=== PATIENT | female | born 1950 | race Caucasian/White ===

== ENCOUNTER 2017-04-01 06:38 | Emergency (ER) | payer MEDICARE, OTHER ==
[~2017-04-01] VITALS: Ht 160 cm; Wt 56.2 kg
--- NOTE | 2017-04-01 06:55 | NUR ---
To bed 7 a 66 yo female bibself with c/o right knee pain s/p fall yesterday, 05/26. Patient is aaox4, ambulatory, right knee pain worsens with movement. vss. nad noted. comfort measures rendered. awaiting for er md adorno.
--- NOTE | 2017-04-01 07:01 | NUR ---
Dr Joyner at bedside to kyree.
[2017-04-01] MEDS ORDERED: HYDROCODONE/APAP 5/325MG 1 EACH TABLET ONE (07:12)
[2017-04-01] MEDS ORDERED: ONDANSETRON 4 MG TAB.RAPDIS ONE (07:12)
[2017-04-01] MEDS: ONDANSETRON 4 MG TAB.RAPDIS PO ONE (07:16)
[2017-04-01] MEDS: HYDROCODONE/APAP 5/325MG 1 EACH TABLET PO ONE (07:16)
--- NOTE | 2017-04-01 07:17 | NUR ---
Medicated patient as ordered by Dr Joyner. Endorsed care to Rosa MOE for jim.
--- NOTE | 2017-04-01 07:39 | NUR ---
pt back from radiology
[2017-04-01 09:27] VITALS: BP 129/74
== END 2017-04-01 09:29 | disposition home or self-care (01) ==
LOC: ER 06:40
DX: S09.90XA Unspecified injury of head, initial encounter (principal); M25.561 Pain in right knee; G89.29 Other chronic pain; I10 Essential (primary) hypertension; J44.9 Chronic obstructive pulmonary disease, unspecified; F17.200 Nicotine dependence, unspecified, uncomplicated; J43.9 Emphysema, unspecified; F10.20 Alcohol dependence, uncomplicated; Z98.890 Other specified postprocedural states; W01.198A Fall on same level from slipping, tripping and stumbling with subsequent striking against other object, initial encounter; Y93.89 Activity, other specified; Y92.89 Other specified places as the place of occurrence of the external cause; Y99.9 Unspecified external cause status
CPT/HCPCS: 70450-TC; 73564-TC; 73700-TC; A4606; Q0162; Z7610

== ENCOUNTER 2017-07-29 11:47 | Emergency (ER) | payer MEDICARE, OTHER ==
[~2017-07-29] VITALS: Ht 162.6 cm; Wt 56.7 kg
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
[2017-07-29] MEDS ORDERED: IBUPROFEN 400 MG TABLET PO ONE (13:00)
[2017-07-29] MEDS ORDERED: IBUPROFEN 400 MG TABLET ONE (13:22)
[2017-07-29 13:58] VITALS: BP 140/85
== END 2017-07-29 14:27 | disposition home or self-care (01) ==
LOC: ER 11:48
DX: S69.91XA Unspecified injury of right wrist, hand and finger(s), initial encounter (principal); M54.9 Dorsalgia, unspecified; F10.129 Alcohol abuse with intoxication, unspecified; I10 Essential (primary) hypertension; J44.9 Chronic obstructive pulmonary disease, unspecified; F17.200 Nicotine dependence, unspecified, uncomplicated; W18.39XA Other fall on same level, initial encounter; Y93.89 Activity, other specified; Y92.89 Other specified places as the place of occurrence of the external cause; Y99.8 Other external cause status
CPT/HCPCS: 29125; 70450; 72128; 72131; 73130; 99284; A4606; Z7610

== ENCOUNTER 2017-08-21 13:02 | Inpatient (IN) | payer MEDICARE, OTHER ==
[~2017-08-21] VITALS: Ht 160 cm; Wt 54.4 kg
--- NOTE | 2017-08-21 13:10 | NUR ---
PT AMBULATORY TO ER BED 10. C/O SOB, COUGH AND CONGESTION SINCE . PT WAS SEEN AND D/C HERE LAST THURSDAY. PT STATES WAS PRESCRIBED INHALER AND ZITHROMAX. GOWNED ANS PLACED ON MONITOR. AWAITING MD GOMES.
--- NOTE | 2017-08-21 16:08 | NUR ---
DR COMBS AT BEDSIDE FOR EVAL.
--- NOTE | 2017-08-21 16:22 | NUR ---
called rt for breathing tx
[2017-08-21 16:23] LABS: BASOPHILS # (AUTO) 0.1 /CMM (0.0-0.2); EOSINOPHILS # (AUTO) 0.1 /CMM (0.0-0.7); EOSINOPHILS % (AUTO) 0.6 % (0.0-6.0); HEMATOCRIT 36 % (33-45); HEMOGLOBIN 12.2 g/dL (11.5-14.8); LYMPHOCYTES # (AUTO) 2.9 /CMM (0.8-4.8); LYMPHOCYTES % (AUTO) 30.4 % (20.0-44.0); MEAN CORPUSCULAR HEMOGLOBIN 32 PG (26.0-33.0); MEAN CORPUSCULAR HGB CONC 34 g/dl (31.0-36.0); MEAN CORPUSCULAR VOLUME 93 fL (82-100); MONOCYTES # (AUTO) 0.7 /CMM (0.1-1.30); MONOCYTES % (AUTO) 7.1 % (2.0-12.0); NEUTROPHILS # (AUTO) 5.8 /CMM (1.8-8.9); NEUTROPHILS % (AUTO) 60.9 % (43.0-81.0); PLATELET COUNT (AUTO) 611 /CMM (150-450); RDW COEFFICIENT OF VARIATION 13.4 (11.5-15.0); RED BLOOD CELL COUNT(AUTO) 3.85 MIL/uL (4.0-5.2); WHITE BLOOD COUNT (AUTO) 9.6 K/uL (4.3-11.0)
[2017-08-21] MEDS ORDERED: ALBUTEROL FS 2.5 MG/3 ML VIAL.NEB CONTNEB ONE (16:30)
[2017-08-21] MEDS ORDERED: ONDANSETRON HCL/PF 4 MG/2 ML VIAL IVP ONE (16:30)
[2017-08-21] MEDS ORDERED: methylPREDNISolone SOD SUCC 125 MG/2ML VIAL IV ONE (16:30)
[2017-08-21] MEDS ORDERED: CEFTRIAXONE 1GM BAG (ER ONLY) 50 ML IV ONE (16:30)
[2017-08-21] MEDS ORDERED: IPRATROPIUM NEB FS 0.5 MG/2.5 ML AMPUL.NEB NEB ONE (16:30)
[2017-08-21] MEDS ORDERED: AZITHROMYCIN 500 MG in IV D5W 250 ML IV ONE (16:30)
[2017-08-21] MEDS ORDERED: IV NS 0.9% 1,000 ML BAG IV ONE (16:30)
[2017-08-21] MEDS ORDERED: ALBUTEROL FS 2.5 MG/3 ML VIAL.NEB ONE (16:31)
[2017-08-21] MEDS ORDERED: IPRATROPIUM NEB FS 0.5 MG/2.5 ML AMPUL.NEB ONE (16:31)
[2017-08-21 16:34] LABS: CALCIUM, SERUM 8.9 mg/dL (8.5-10.1); CARBON DIOXIDE 28 mmol/L (21-32); CHLORIDE 93 mmol/L (98-107); CREATININE 0.5 mg/dL (0.6-1.3); GLUCOSE 88 mg/dL (74-106); POTASSIUM 3.3 mmol/L (3.5-5.1); SODIUM SERUM 128 mmol/L (136-145); UREA NITROGEN, BLOOD 5 mg/dL (7-18)
[2017-08-21 16:41] LABS: TROPONIN I < 0.017 ng/mL (0.00-0.056)
[2017-08-21] MEDS ORDERED: methylPREDNISolone SOD SUCC 125 MG/2ML VIAL ONE (16:44)
[2017-08-21] MEDS ORDERED: ONDANSETRON HCL/PF 4 MG/2 ML VIAL ONE (16:44)
[2017-08-21 16:47] LABS: ALANINE AMINOTRANSFERASE 14 U/L (12-78); ALBUMIN 2.8 g/dL (3.4-5.0); ALKALINE PHOSPHATASE 75 U/L (46-116); ASPARTATE AMINOTRANSFERASE 14 U/L (15-37); B-TYPE NATRIURETIC PEPTIDE 478 PG/ML (0-125); BILIRUBIN,TOTAL 0.1 mg/dL (0.2-1.0); TOTAL PROTEIN, SERUM 7.6 g/dL (6.4-8.2)
[2017-08-21] MEDS ORDERED: IV NS 0.9% 1,000 ML IV PRN (19:15)
[2017-08-21] MEDS ORDERED: Z GUARD REMEDY 2 OZ OINT TP PRN (19:30)
[2017-08-21] MEDS ORDERED: ACETAMINOPHEN 325 MG TABLET PO PRN (19:30)
[2017-08-21] MEDS ORDERED: ONDANSETRON HCL/PF 4 MG/2 ML VIAL IVP PRN (19:30)
[2017-08-21] MEDS ORDERED: ENOXAPARIN SODIUM 40 MG/0.4 ML DISP.SYRIN SQ SCH (19:30)
[2017-08-21] MEDS ORDERED: MAGNESIUM HYDROXIDE 30 ML UDC PO PRN (19:30)
[2017-08-21] MEDS ORDERED: AZITHROMYCIN 500 MG in IV D5W 250 ML IV SCH (19:30)
[2017-08-21] MEDS ORDERED: MAG HYDROX/AL HYDROX/SIMETH 30 ML UDC PO PRN (19:30)
[2017-08-21] MEDS ORDERED: HYDROCODONE/APAP 5/325MG 1 EACH TABLET PO PRN (19:30)
[2017-08-21] MEDS ORDERED: CEFTRIAXONE 1 G in IV D5W 50 ML IV SCH (19:30)
--- NOTE | 2017-08-21 21:21 | NUR ---
REPORT GIVEN TO NURSE. PT AWAITING TRANSFER TO FLOOR.
[2017-08-21 21:30] VITALS: BP 141/69
[2017-08-21] MEDS ORDERED: HYDROCODONE/APAP 10/325MG 1 EA TABLET ONE (21:58)
[2017-08-21] MEDS ORDERED: ENOXAPARIN SODIUM 40 MG/0.4 ML DISP.SYRIN SQ ONE (21:58)
[2017-08-21] MEDS: HYDROCODONE/APAP 10/325MG 1 EA TABLET PO PRN (22:02)
[2017-08-21] MEDS ORDERED: TEMAZEPAM 15 MG CAPSULE ONE (22:37)
[2017-08-21] MEDS ORDERED: TEMAZEPAM 15 MG CAPSULE PO ONE (23:00)
[2017-08-22] MEDS ORDERED: ALBUTEROL FS 2.5 MG/0.5 ML VIAL.NEB NEB SCH
[2017-08-22] MEDS ORDERED: IPRATROPIUM NEB FS 0.5 MG/2.5 ML AMPUL.NEB NEB SCH
[2017-08-22] MEDS ORDERED: HYDROCODONE/APAP 10/325MG 1 EA TABLET ONE (03:38)
[2017-08-22] MEDS: HYDROCODONE/APAP 10/325MG 1 EA TABLET PO PRN ×4 (03:39→21:19)
--- NOTE | 2017-08-22 06:37 | NUR ---
MS RN NOTES AWAKE & RESPONSIVE. NOT IN ANY DISTRESS. NO SOB NOTED. DENIES ANY PAIN OR DISCOMFORT AT THIS TIME. WITH IVF INFUSING WELL. MONITORED ACCORDINGLY. CALL LIGHT WITHIN REACH. BED IN LOWEST POSITION. SR UP X 2 FOR SAFETY. WILL ENDORSE TO NEXT SHIFT.
--- NOTE | 2017-08-22 07:20 | NUR ---
RN OPENING NOTES RECEIVED PT. IN BED A&OX4. BREATHING UNLABORED, AND EVENLY ON OXYGEN AT 3L/MIN VIA NASAL CANNULA . NO S/S OF ACUTE DISTRESS. IV FLUIDS RUNNING AT 75 ML/HR. BED IS IN LOWEST, AND LOCKED POSITION. BOTH SIDE RAILS UP, AND INSTRUCTED PT. TO USE CALL LIGHT FOR ASSISTANCE. ALL NEEDS MET. WILL CONTINUE TO ASSESS AND MONITOR.
[2017-08-22 08:00] VITALS: BP 111/63
[2017-08-22 08:31] LABS: BASOPHILS % (AUTO) 0.5 % (0.0-2.0); EOSINOPHILS % (AUTO) 0.1 % (0.0-6.0); HEMATOCRIT 31 % (33-45); HEMOGLOBIN 10.9 g/dL (11.5-14.8); LYMPHOCYTES # (AUTO) 1.1 /CMM (0.8-4.8); LYMPHOCYTES % (AUTO) 12.9 % (20.0-44.0); MEAN CORPUSCULAR HEMOGLOBIN 34 PG (26.0-33.0); MEAN CORPUSCULAR HGB CONC 35 g/dl (31.0-36.0); MEAN CORPUSCULAR VOLUME 96 fL (82-100); MONOCYTES # (AUTO) 0.4 /CMM (0.1-1.30); NEUTROPHILS % (AUTO) 81.5 % (43.0-81.0); PLATELET COUNT (AUTO) 487 /CMM (150-450); RED BLOOD CELL COUNT(AUTO) 3.27 MIL/uL (4.0-5.2); WHITE BLOOD COUNT (AUTO) 8.6 K/uL (4.3-11.0)
[2017-08-22 08:41] LABS: CALCIUM, SERUM 8.5 mg/dL (8.5-10.1); CREATININE 0.7 mg/dL (0.6-1.3); MAGNESIUM 1.6 mg/dL (1.8-2.4); PHOSPHORUS 3.6 mg/dL (2.5-4.9); POTASSIUM 3.9 mmol/L (3.5-5.1)
[2017-08-22 08:45] LABS: THYROID STIMULATING HORMONE 0.995 uIU/mL (0.358-3.74)
[2017-08-22] MEDS: methylPREDNISolone SOD SUCC 40 MG/ML VIAL IV SCH ×2 (09:42→17:19)
[2017-08-22] MEDS: Magnesium 1GM/D5W 100ML PREMIX 100 ML IV SCH ×2 (09:43→11:50)
[2017-08-22 16:00] VITALS: BP 145/87
[2017-08-22] MEDS: CEFTRIAXONE 1 G in IV D5W 50 ML IV SCH (16:15)
[2017-08-22] MEDS ORDERED: IV NS 0.9% 1,000 ML IV PRN (16:25)
[2017-08-22] MEDS: AZITHROMYCIN 250 MG TABLET PO SCH (17:23)
[2017-08-22] MEDS ORDERED: AZITHROMYCIN 500 MG in IV D5W 250 ML IV SCH (18:00)
--- NOTE | 2017-08-22 19:35 | NUR ---
RN CLOSING NOTES PT. IN BED A&OX4. BREATHING UNLABORED, AND EVENLY ON ROOM AIR. NO S/S OF ACUTE DISTRESS. IV ACCESS ON LEFT FOREARM IS INTACT AND PATENT. BED IS IN LOWEST, AND LOCKED POSITION. W SIDE RAILS UP, AND INSTRUCTED PT. TO USE CALL LIGHT FOR ASSISTANCE. ALL NEEDS MET. WILL ENDORSE REPORT TO NURSE.
--- NOTE | 2017-08-22 19:45 | NUR ---
RN OPENING NOTES PT RESTING IN BED. NO COMPLAINTS OF PAIN, SOB, OR DISTRESS AT THIS TIME. PT HAS LEFT FOREARM IV, INTACT AND PATENT. SAFETY PRECAUTIONS IN PLACE. PT ABLE TO AMBULATE TO THE BATHROOM. BED IN LOW, LOCKED POSITION, [id number] UP. CALL LIGHT WITHIN REACH. WILL CONTINUE TO MONITOR.
[2017-08-22 20:00] VITALS: BP 162/87
[2017-08-22] MEDS: ALBUTEROL FS 2.5 MG/0.5 ML VIAL.NEB NEB SCH (20:07)
[2017-08-22] MEDS: IPRATROPIUM NEB FS 0.5 MG/2.5 ML AMPUL.NEB NEB SCH (20:07)
[2017-08-22] MEDS: ENOXAPARIN SODIUM 40 MG/0.4 ML DISP.SYRIN SQ SCH (21:00)
[2017-08-23] MEDS: ALBUTEROL FS 2.5 MG/0.5 ML VIAL.NEB NEB SCH ×4 (01:30→21:23)
[2017-08-23] MEDS: IPRATROPIUM NEB FS 0.5 MG/2.5 ML AMPUL.NEB NEB SCH ×4 (01:30→21:23)
[2017-08-23] MEDS: HYDROCODONE/APAP 10/325MG 1 EA TABLET PO PRN ×5 (03:28→21:24)
--- NOTE | 2017-08-23 07:15 | NUR ---
RN NOTES PT IS SITTING UP IN BED, RESTING COMFORTABLY. PT ON RA, RESPIRATIONS ARE EVEN AND UNLABORED. IV ON LAC INTACT AND PATENT RUNNING NS @ 50ML/HR. SAFETY MEASURES ARE IN PLACE, CALL LIGHT IS IN REACH. WILL CONTINUE TO MONITOR.
--- NOTE | 2017-08-23 07:33 | NUR ---
RN CLOSING NOTES PT RESTING IN BED. NO COMPLAINTS OF PAIN, SOB, OR DISTRESS AT THIS TIME. PT HAS LEFT FOREARM IV, INTACT AND PATENT. SAFETY PRECAUTIONS IN PLACE. PT ABLE TO AMBULATE TO THE BATHROOM. BED IN LOW, LOCKED POSITION, [id number] UP. CALL LIGHT WITHIN REACH. WILL ENDORSE TO DAY SHIFT NURSE FOR CONTINUITY OF CARE.
[2017-08-23 07:45] LABS: BASOPHILS # (AUTO) 0.2 /CMM (0.0-0.2); HEMATOCRIT 32 % (33-45); HEMOGLOBIN 11.5 g/dL (11.5-14.8); LYMPHOCYTES # (AUTO) 1.8 /CMM (0.8-4.8); LYMPHOCYTES % (AUTO) 15.6 % (20.0-44.0); MEAN CORPUSCULAR HEMOGLOBIN 35 PG (26.0-33.0); MEAN CORPUSCULAR HGB CONC 36 g/dl (31.0-36.0); MEAN CORPUSCULAR VOLUME 98 fL (82-100); MONOCYTES # (AUTO) 0.6 /CMM (0.1-1.30); MONOCYTES % (AUTO) 4.8 % (2.0-12.0); NEUTROPHILS # (AUTO) 9.1 /CMM (1.8-8.9); NEUTROPHILS % (AUTO) 77.6 % (43.0-81.0); PLATELET COUNT (AUTO) 447 /CMM (150-450); RDW COEFFICIENT OF VARIATION 14.2 (11.5-15.0); RED BLOOD CELL COUNT(AUTO) 3.25 MIL/uL (4.0-5.2); WHITE BLOOD COUNT (AUTO) 11.8 K/uL (4.3-11.0)
[2017-08-23 08:00] VITALS: BP 189/81
[2017-08-23] MEDS: methylPREDNISolone SOD SUCC 40 MG/ML VIAL IV SCH ×2 (08:00→17:12)
[2017-08-23] MEDS: VALSARTAN 80 MG TABLET PO SCH (08:35)
[2017-08-23 08:36] LABS: CALCIUM, SERUM 9.1 mg/dL (8.5-10.1); CREATININE 0.5 mg/dL (0.6-1.3); POTASSIUM 3.9 mmol/L (3.5-5.1)
[2017-08-23 12:27] LABS: MAGNESIUM 1.8 mg/dL (1.8-2.4)
[2017-08-23] MEDS: CEFTRIAXONE 1 G in IV D5W 50 ML IV SCH (15:12)
[2017-08-23 16:00] VITALS: BP 130/63
[2017-08-23] MEDS: AZITHROMYCIN 250 MG TABLET PO SCH (17:12)
--- NOTE | 2017-08-23 18:53 | NUR ---
RN NOTES PT IS SITTING IN BED, RESTING COMFORTABLY. PT ON RA, RESPIRATIONS ARE EVEN AND UNLABORED. IV ON LAC INTACT AND RUNNING NS @ 50ML/HR. ALL MEDS WERE GIVEN ORDERED. NORCO LAST GIVEN AT 1713 FOR PAIN. SAFETY MEASURES ARE IN PLACE, CALL LIGHT IS IN REACH. WILL ENDORSE TO PAPERHANGER RN FOR CONTINUITY OF CARE.
--- NOTE | 2017-08-23 19:55 | NUR ---
MS RN NOTE: PATIENT RESTING IN BED, NO ACUTE DISTRESS NOTED. BREATHING EVEN AND UNLABORED, NO SOB NOTED. IV TO LAC IN PLACE, PATIENT REFUSING FLUIDS AT THIS TIME, EXPLAINED RISK AND BENEFITS, BUT CONTINUES TO REFUSE. BED LOCKED AND IN LOWEST POSITION, CALL LIGHT IN REACH. WILL CONTINUE TO MONITOR.
[2017-08-23 20:44] VITALS: BP 101/59
[2017-08-23] MEDS: ENOXAPARIN SODIUM 40 MG/0.4 ML DISP.SYRIN SQ SCH (21:00)
--- NOTE | 2017-08-23 21:30 | NUR ---
MS RN NOTE: PATIENT COMPLAINS OF PAIN TO ABDOMEN/CHEST AREA, 04/26, NORCO 10/325MG ORAL GIVEN PER MD ORDER. WILL CONTINUE TO MONITOR.
[2017-08-24] MEDS: ALBUTEROL FS 2.5 MG/0.5 ML VIAL.NEB NEB SCH ×4 (01:30→19:42)
[2017-08-24] MEDS: IPRATROPIUM NEB FS 0.5 MG/2.5 ML AMPUL.NEB NEB SCH ×4 (01:30→19:42)
[2017-08-24] MEDS: HYDROCODONE/APAP 10/325MG 1 EA TABLET PO PRN ×4 (01:59→21:02)
--- NOTE | 2017-08-24 02:15 | NUR ---
MS RN NOTE: PATIENT COMPLAINS OF PAIN TO ABDOMEN/CHEST AREA, 04/26, NORCO 10/325MG ORAL GIVEN PER MD ORDER. WILL CONTINUE TO MONITOR.
--- NOTE | 2017-08-24 06:50 | NUR ---
MS RN NOTE: PATIENT RESTING IN BED, NO ACUTE DISTRESS NOTED. BREATHING EVEN AND UNLABORED, NO SOB NOTED. IV TO LAC IN PLACE. BED LOCKED AND IN LOWEST POSITION, CALL LIGHT IN REACH. WILL ENDORSE TO DAY NURSE TO CONTINUE WITH PLAN OF CARE.
--- NOTE | 2017-08-24 07:30 | NUR ---
RN OPENING NOTES RECEIVED PT. IN BED A&OX4. BREATHING UNLABORED, AND EVENLY ON OXYGEN AT 2L/MIN VIA NASAL CANNULA. IV FLUIDS AT BED SIDE. BED IS IN LOWEST, AND LOCKED POSITION. 2 SIDE RAILS UP, AND INSTRUCTED PT. TO USE CALL LIGHT FOR ASSISTANCE ALL NEEDS MET. WILL CONTINUE TO ASSESS AND MONITOR.
[2017-08-24 08:00] VITALS: BP 114/68
[2017-08-24] MEDS ORDERED: predniSONE 20 MG TABLET PO SCH (09:00)
[2017-08-24] MEDS: VALSARTAN 80 MG TABLET PO SCH (09:02)
--- NOTE | 2017-08-24 11:28 | NUR ---
Social service consult requested by SURYA Hernandez for homelessness. Pt. is a 66 year old female who was admitted to [facility] for pneumonia. SW met with pt. bedside. SW is familiar with pt. from previous admissions. Pt. is alert and oriented x 4. Pt. was pleasant and cooperative with SW during the assessment. Pt. informed SW she is homeless and has been homeless by choice for a very long time. Pt's emergency contact is her sister Salome who resides in [place]. Pt. has a boyfriend and lives with him on the streets at [facility] in [place]. Pt. has been with her boyfriend Estevan for 14 years. Pt. receives approximately $982/month in SSI. Pt. denies suicidal/homicidal ideations and visual/auditory hallucinations at this time. Pt. consumes alcohol and smokes marijuana occasionally. Pt. smokes one packet of cigarettes per day. Pt. would like to go to [facility] upon discharge. motel manager Bertha Diamond is aware of placement and will be arranging for pt. to be discharged to [facility] when pt. is medically cleared. Pt. does not have an advance healthcare directive and makes her own decisions. No other social service needs are required at this time. SW is available if needed.
[2017-08-24] MEDS ORDERED: VALS80TA2 PO (12:11)
[2017-08-24] MEDS ORDERED: CEFT1FRO2 IV (12:11)
[2017-08-24] MEDS ORDERED: AZIT250T PO (12:11)
[2017-08-24] MEDS ORDERED: PRED20TA GT (12:11)
[2017-08-24] MEDS ORDERED: PRED20TA PO ×2 (12:11)
[2017-08-24] MEDS ORDERED: ALBU2.5V13 NEB (12:11)
--- NOTE | 2017-08-24 15:26 | NUR ---
RN NOTES REPORT GIVEN TO FIONA FEDERAL JUDICIAL LAW CLERK FROM [facility].
[2017-08-24] MEDS: CEFTRIAXONE 1 G in IV D5W 50 ML IV SCH (15:30)
[2017-08-24 16:00] VITALS: BP 153/77
--- NOTE | 2017-08-24 16:00 | NUR ---
RN NOTES REPORT WAS GIVEN TO FIONA NURSE PARK INTERPRETIVE RANGER AT [facility] FOR DISCHARGE.
[2017-08-24] MEDS ORDERED: LACTOBACILLUS RHAMNOSUS GG 1 EACH CAP.SPRINK PO SCH (17:00)
--- NOTE | 2017-08-24 17:00 | NUR ---
SALES SPECIAL AGENT NOTES PT. WAS PROVIDED DISCHARGE INSTRUCTIONS, WITH EDUCATIONS, AND PT. VERBALIZED UNDERSTANDING. ALL QUESTIONS ANSWERED. ID BAND AND IV WAS REMOVED.
[2017-08-24] MEDS: AZITHROMYCIN 250 MG TABLET PO SCH (19:22)
--- NOTE | 2017-08-24 19:22 | NUR ---
RN NOTES A/O X 4, PT IN STABLE CONDITION, NO S/S OF DISTRESS. SAFETY MEASURES ARE IN PLACE, CALL LIGHT IS IN REACH. WILL CONTINUE TO MONITOR.
--- NOTE | 2017-08-24 19:30 | NUR ---
DIGITAL SALES MANAGER NOTES PT. IS IN STABLE CONDITION. NO S/S OF ACUTE DISTRESS. AMBULANCE CHECKED PT.'S BP. BP WAS 177/90, AMBULANCE COULD NOT TAKE PT. DUE TO HIGH BP. AMBULANCE RESCHEDULED NEW FURNACE OPERATOR AND TENDER TIME FOR 2229. WAS NOTIFIED ABOUT PT.'S BP, NEW ORDER GIVEN FOR CATAPRES 0.2 MG PO ONCE. WILL ENDORSE DISCHARGE REPORT TO NURSE.
[2017-08-24 20:00] VITALS: BP 149/79
[2017-08-24] MEDS ORDERED: CLONIDINE HCL 0.1 MG TABLET PO ONE (20:00)
[2017-08-24] MEDS: ENOXAPARIN SODIUM 40 MG/0.4 ML DISP.SYRIN SQ SCH (20:27)
[2017-08-24 21:29] VITALS: BP 138/67
--- NOTE | 2017-08-24 22:51 | NUR ---
bp now stable, called ambulance to ff up picking machine operator helper according to them they will be late picking machine operator helper time 2330 charge nurse aware. called nursing skilled facility to inform time of arrival of the patient
--- NOTE | 2017-08-25 00:15 | NUR ---
PATIENT DISCHARGE PATIENT LEFT AT 0010 VIA AMBULANCE VIA GURNEY WITH 2 EMT TO [facility], PATIENT ON STABLE CONDITION NO S/S OF DISTRESS NOTED, NO CHEST PAIN, BP STABLE. AFEBRILE 02 SAT AT 96% R.A, EDUCATION ABOUT DISEASE AND RISKS AND BENEFITS FOLLOW UP CARE PROVIDED,PT VERBALIZED UNDERSTANDING. IV HEPLOCK REMOVED BY DAY SHIFT RN. ALL DOCUMENTS WAS PROVIDED. ALL BELONGINGS WAS TAKEN, PT APPRECIATIVE AND THANKFUL.
== END 2017-08-25 00:10 | DRG 194 ==
LOC: ER 13:03 → MED 21:36
PROVIDERS: ADMIT Nurse Practitioner Acute Care; ATTEND Nurse Practitioner Acute Care
DX: J15.9 Unspecified bacterial pneumonia (principal); E44.0 Moderate protein-calorie malnutrition; E87.8 Other disorders of electrolyte and fluid balance, not elsewhere classified; E88.09 Other disorders of plasma-protein metabolism, not elsewhere classified; E83.42 Hypomagnesemia; E87.1 Hypo-osmolality and hyponatremia; E11.9 Type 2 diabetes mellitus without complications; D47.3 Essential (hemorrhagic) thrombocythemia; J44.0 Chronic obstructive pulmonary disease with (acute) lower respiratory infection; J44.1 Chronic obstructive pulmonary disease with (acute) exacerbation; F17.210 Nicotine dependence, cigarettes, uncomplicated; I10 Essential (primary) hypertension; Z59.0 Homelessness; E87.6 Hypokalemia; G89.29 Other chronic pain; Z68.21 Body mass index [BMI] 21.0-21.9, adult; D64.9 Anemia, unspecified; R07.81 Pleurodynia; I16.0 Hypertensive urgency; E86.1 Hypovolemia
CPT/HCPCS: 36415; 71045-TC; 80048-TC; 80061-TC; 80076-TC; 82728-TC; 83540-TC; 83735-TC; 83880; 84100-TC; 84443-TC; 84484-TC; 85025-TC; 87040-TC; 87081-TC; 87400; 93307-TC; 97116-TC; 97530-TC; A4606; J0456; J0696; J1650; J2405; J2920; J2930; J3475; J7030; J7060; Z7610

== ENCOUNTER 2017-11-29 15:08 | Emergency (ER) | payer MEDICARE, OTHER ==
[~2017-11-29] VITALS: Ht 160 cm; Wt 61.2 kg
[~2017-11-29 15:08] MED LIST: ALBU2.5V13 NEB; AZIT250T PO; CEFT1FRO2 IV; PRED20TA GT; PRED20TA PO; VALS80TA2 PO
[2017-11-29 15:11] VITALS: BP 131/76
[2017-11-29] MEDS ORDERED: IBUPROFEN 600 MG TABLET PO ONE ×2 (15:29→15:30)
== END 2017-11-29 17:17 | disposition home or self-care (01) ==
LOC: ER 15:09
DX: M79.605 Pain in left leg (principal); I10 Essential (primary) hypertension; J44.9 Chronic obstructive pulmonary disease, unspecified; G89.29 Other chronic pain; F10.10 Alcohol abuse, uncomplicated; F17.200 Nicotine dependence, unspecified, uncomplicated
CPT/HCPCS: 73564; 73590; 99284; A4606; Z7610

== ENCOUNTER 2017-12-12 16:13 | Emergency (ER) | payer MEDICARE, OTHER ==
[~2017-12-12] VITALS: Ht 167.6 cm; Wt 68.0 kg
[2017-12-12 16:18] VITALS: BP 147/82
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
[2017-12-12] MEDS ORDERED: THIAMINE HCL 100 MG TABLET ONE (17:12)
[2017-12-12] MEDS ORDERED: MORPHINE SULFATE INJ 4 MG/ML DISP.SYRIN ONE (17:13)
[2017-12-12] MEDS ORDERED: MORPHINE SULFATE INJ 2 MG/ML DISP.SYRIN IM ONE (17:30)
[2017-12-12] MEDS ORDERED: THIAMINE HCL 100 MG TABLET PO ONE (17:30)
--- NOTE | 2017-12-12 19:08 | NUR ---
REPORT GIVEN TO JAYY FOR [facility]
--- NOTE | 2017-12-12 19:16 | NUR ---
REPORT RECEIVED FROM PAYAL MANCILLA FOR [facility].
== END 2017-12-12 17:37 | disposition home or self-care (01) ==
LOC: ER 16:14
DX: F10.129 Alcohol abuse with intoxication, unspecified (principal); F17.200 Nicotine dependence, unspecified, uncomplicated; G89.29 Other chronic pain; I10 Essential (primary) hypertension; Z98.890 Other specified postprocedural states
CPT/HCPCS: 93971; 96372; 99284; A4606; J2270; Z7610

== ENCOUNTER 2018-05-28 13:13 | Emergency (ER) | payer MEDICARE, OTHER ==
[~2018-05-28] VITALS: Ht 167.6 cm; Wt 68.9 kg
[2018-05-28] MEDS ORDERED: IV NS 0.9% 250 ML BAG IV ONE (18:00)
[2018-05-28] MEDS ORDERED: METOCLOPRAMIDE HCL 10 MG/2 ML VIAL IV ONE (18:00)
[2018-05-28] MEDS ORDERED: ONDANSETRON HCL/PF 4 MG/2 ML VIAL IVP ONE (18:00)
[2018-05-28] MEDS ORDERED: diphenhydrAMINE HCL 50 MG/ML VIAL IV ONE (18:00)
[2018-05-28] MEDS ORDERED: IV NS 0.9% 500 ML BAG IV ONE (18:00)
[2018-05-28] MEDS ORDERED: MORPHINE SULFATE INJ 2 MG/ML DISP.SYRIN IV ONE (18:00)
[2018-05-28 18:26] LABS: BASOPHILS # (AUTO) 0.1 /CMM (0.0-0.2); BASOPHILS % (AUTO) 0.7 % (0.0-2.0); EOSINOPHILS % (AUTO) 3.1 % (0.0-6.0); HEMATOCRIT 41 % (33-45); HEMOGLOBIN 14.5 g/dL (11.5-14.8); LYMPHOCYTES # (AUTO) 2.2 /CMM (0.8-4.8); LYMPHOCYTES % (AUTO) 28.4 % (20.0-44.0); MEAN CORPUSCULAR HGB CONC 35 g/dl (31.0-36.0); MEAN CORPUSCULAR VOLUME 94 fL (82-100); MONOCYTES # (AUTO) 0.7 /CMM (0.1-1.30); MONOCYTES % (AUTO) 9.4 % (2.0-12.0); NEUTROPHILS # (AUTO) 4.4 /CMM (1.8-8.9); NEUTROPHILS % (AUTO) 58.4 % (43.0-81.0); PLATELET COUNT (AUTO) 281 /CMM (150-450); RDW COEFFICIENT OF VARIATION 14.2 (11.5-15.0); RED BLOOD CELL COUNT(AUTO) 4.42 MIL/uL (4.0-5.2); WHITE BLOOD COUNT (AUTO) 7.6 K/uL (4.3-11.0)
[2018-05-28 18:35] LABS: CREATININE 0.6 mg/dL (0.6-1.3); POTASSIUM 3.4 mmol/L (3.5-5.1)
[2018-05-28 18:42] LABS: BILIRUBIN,DIRECT 0.2 mg/dL (0.0-0.2); BILIRUBIN,TOTAL 0.8 mg/dL (0.2-1.0); TOTAL PROTEIN, SERUM 7.6 g/dL (6.4-8.2)
--- NOTE | 2018-05-28 19:00 | NUR ---
BIB RA 860, AMBULATORY,HEADACHE X 1 -1/2 WEEKS PT IS TACHYCARDIC BUT OTHERWISE VSS NO ACUTE DISTRESS NOTED AT THIS TIME. PT IS ALERT AND ORIENTED X4 ABLE TO MAKE NEEDS KNOWN. SKIN WARM AND INTACT. PT ABLE TO AMBULATE NEEDED. PLACED ON PUBLIC RELATIONS MANAGER. WILL CONTINUE TO MONITOR FOR ANY CHANGES DURING THE SHIFT.
--- NOTE | 2018-05-28 19:01 | NUR ---
ER DESIGN EDITOR DEGRASSE AT BEDSIDE FOR EVAL
[2018-05-28] MEDS ORDERED: METOCLOPRAMIDE HCL 10 MG/2 ML VIAL ONE (19:26)
[2018-05-28] MEDS ORDERED: ONDANSETRON HCL/PF 4 MG/2 ML VIAL ONE (19:26)
[2018-05-28] MEDS ORDERED: MORPHINE SULFATE INJ 4 MG/ML DISP.SYRIN ONE (19:26)
[2018-05-28] MEDS ORDERED: diphenhydrAMINE HCL 50 MG/ML VIAL ONE (19:26)
[2018-05-28 19:28] LABS: INR 0.94 (0.87-1.13)
[2018-05-28] MEDS ORDERED: IV NS 0.9% 1,000 ML BAG IV ONE (19:30)
[2018-05-28] MEDS ORDERED: LORAZEPAM INJ 2 MG/ML VIAL IV ONE (20:30)
[2018-05-28 20:38] LABS: APPEARANCE,URINE Clear (CLEAR); BILIRUBIN,URINE Negative (NEGATIVE); BLOOD, URINE Negative Ery/uL (NEGATIVE); COLOR,URINE Yellow (YELLOW); KETONES,URINE Trace (NEGATIVE); LEUKOCYTE ESTERASE ,URINE Negative (NEGATIVE); NITRITE, URINE Negative (NEGATIVE); PROTEIN,URINE Negative (NEGATIVE); UGLUCOSE Negative (NEGATIVE); UROBILINOGEN,URINE 0.2 EU/dL (0.2)
[2018-05-28] MEDS ORDERED: LORAZEPAM INJ 2 MG/ML VIAL ONE (20:39)
[2018-05-28 20:56] LABS: BACTERIA,URINE Rare /HPF (None Seen); RBC,URINE 0-2 /HPF (0-2); SQUAMOUS EPITHELIAL CELL,UR Few /HPF (None Seen); WBC,URINE 0-2 /HPF (0-3)
[2018-05-28 21:03] VITALS: BP 130/68
== END 2018-05-28 21:04 | disposition home or self-care (01) ==
LOC: ER 13:16
DX: R51 Headache (principal); E87.1 Hypo-osmolality and hyponatremia; R11.2 Nausea with vomiting, unspecified; F10.10 Alcohol abuse, uncomplicated; Y90.9 Presence of alcohol in blood, level not specified; I10 Essential (primary) hypertension; G89.29 Other chronic pain; J44.9 Chronic obstructive pulmonary disease, unspecified; Z60.2 Problems related to living alone; Z98.890 Other specified postprocedural states
CPT/HCPCS: 36415; 70450; 71045; 80048; 80076; 81001; 85025; 85730; 96361; 96374; 96375; 99285; 99406; A4606; J1200; J2060; J2270; J2405; J2765; J7030; J7040; J7050; 81000-TC; Z7610

== ENCOUNTER 2018-06-22 07:58 | Emergency (ER) | payer MEDICARE, OTHER ==
[~2018-06-22] VITALS: Ht 162.6 cm; Wt 61.2 kg
[2018-06-22 08:30] VITALS: BP 169/107
[2018-06-22] MEDS ORDERED: KETOROLAC TROMETHAMINE INJ 30 MG/ML VIAL IM ONE (08:30)
[2018-06-22] MEDS ORDERED: HYDROCODONE/APAP 5/325MG 1 EACH TABLET PO ONE (08:30)
[2018-06-22] MEDS ORDERED: HYDROCODONE/APAP 5/325MG 1 EACH TABLET ONE (08:49)
[2018-06-22] MEDS ORDERED: KETOROLAC TROMETHAMINE INJ 30 MG/ML VIAL ONE (08:49)
[2018-06-22 09:11] LABS: APPEARANCE,URINE Clear (CLEAR); BILIRUBIN,URINE Negative (NEGATIVE); BLOOD, URINE Negative Ery/uL (NEGATIVE); COLOR,URINE Yellow (YELLOW); KETONES,URINE Negative (NEGATIVE); LEUKOCYTE ESTERASE ,URINE Trace (NEGATIVE); NITRITE, URINE Negative (NEGATIVE); PH,URINE 6.5 (5.0-8.0); PROTEIN,URINE Negative (NEGATIVE); UGLUCOSE Negative (NEGATIVE); UROBILINOGEN,URINE 0.2 EU/dL (0.2)
[2018-06-22 09:27] LABS: BACTERIA,URINE Few /HPF (None Seen); RBC,URINE 0-2 /HPF (0-2); SQUAMOUS EPITHELIAL CELL,UR Moderate /HPF (None Seen); WBC,URINE 0-2 /HPF (0-3)
--- NOTE | 2018-06-22 10:32 | NUR ---
Pt states "pain a bit better-tolerable." For discharge- ACI given verbalized understanding home ambulatory in stable condition.
== END 2018-06-22 10:43 | disposition home or self-care (01) ==
LOC: ER 07:59
DX: S22.081A Stable burst fracture of T11-T12 vertebra, initial encounter for closed fracture (principal); S39.012A Strain of muscle, fascia and tendon of lower back, initial encounter; M54.16 Radiculopathy, lumbar region; M25.552 Pain in left hip; I10 Essential (primary) hypertension; J44.9 Chronic obstructive pulmonary disease, unspecified; G89.29 Other chronic pain; M54.42 Lumbago with sciatica, left side; F10.10 Alcohol abuse, uncomplicated; F17.200 Nicotine dependence, unspecified, uncomplicated; Y90.9 Presence of alcohol in blood, level not specified; Z60.2 Problems related to living alone; Z98.890 Other specified postprocedural states; W18.39XA Other fall on same level, initial encounter; Y93.89 Activity, other specified; Y92.89 Other specified places as the place of occurrence of the external cause; Y99.8 Other external cause status
CPT/HCPCS: 72110-TC; 73502; 81000-TC; A4606; J1885; Z7610

== ENCOUNTER 2019-06-27 12:38 | Emergency (ER) | payer MEDICARE, OTHER ==
[~2019-06-27] VITALS: Ht 157.5 cm; Wt 61.2 kg
[2019-06-27 12:39] VITALS: BP 123/65
[2019-06-27 13:30] LABS: BASOPHILS # (AUTO) 0.1 /CMM (0.0-0.2); BASOPHILS % (AUTO) 0.7 % (0.0-2.0); EOSINOPHILS % (AUTO) 3.4 % (0.0-6.0); HEMATOCRIT 35 % (33-45); HEMOGLOBIN 11.7 g/dL (11.5-14.8); LYMPHOCYTES # (AUTO) 2.5 /CMM (0.8-4.8); LYMPHOCYTES % (AUTO) 30.4 % (20.0-44.0); MEAN CORPUSCULAR HGB CONC 34 g/dl (31.0-36.0); MEAN CORPUSCULAR VOLUME 92 fL (82-100); MONOCYTES # (AUTO) 0.6 /CMM (0.1-1.30); NEUTROPHILS # (AUTO) 4.9 /CMM (1.8-8.9); NEUTROPHILS % (AUTO) 58.5 % (43.0-81.0); PLATELET COUNT (AUTO) 313 /CMM (150-450); RED BLOOD CELL COUNT(AUTO) 3.78 MIL/uL (4.0-5.2); WHITE BLOOD COUNT (AUTO) 8.3 K/uL (4.3-11.0)
[2019-06-27 13:37] LABS: CALCIUM, SERUM 8.9 mg/dL (8.5-10.1); CARBON DIOXIDE 24 mmol/L (21-32); CHLORIDE 91 mmol/L (98-107); CREATININE 0.5 mg/dL (0.6-1.3); GLUCOSE 75 mg/dL (74-106); POTASSIUM 3.1 mmol/L (3.5-5.1); SODIUM SERUM 128 mmol/L (136-145); UREA NITROGEN, BLOOD 7 mg/dL (7-18)
[2019-06-27 13:50] LABS: ALANINE AMINOTRANSFERASE 29 U/L (12-78); ALBUMIN 3.8 g/dL (3.4-5.0); ALKALINE PHOSPHATASE 61 U/L (46-116); ASPARTATE AMINOTRANSFERASE 24 U/L (15-37); BILIRUBIN,DIRECT 0.1 mg/dL (0.0-0.2); BILIRUBIN,TOTAL 0.3 mg/dL (0.2-1.0); TOTAL PROTEIN, SERUM 7.1 g/dL (6.4-8.2)
== END 2019-06-27 14:32 | disposition home or self-care (01) ==
LOC: ER 12:40
DX: J40 Bronchitis, not specified as acute or chronic (principal); F10.10 Alcohol abuse, uncomplicated; I10 Essential (primary) hypertension; J44.9 Chronic obstructive pulmonary disease, unspecified; G89.29 Other chronic pain; F17.200 Nicotine dependence, unspecified, uncomplicated; Z98.890 Other specified postprocedural states; Z60.2 Problems related to living alone; Z79.899 Other long term (current) drug therapy; Y90.9 Presence of alcohol in blood, level not specified
CPT/HCPCS: 36415; 71045-TC; 80048-TC; 80076-TC; 83605-TC; 85025-TC; 87040-TC

== ENCOUNTER 2019-07-25 16:19 | Emergency (ER) | payer MEDICARE, OTHER ==
[~2019-07-25] VITALS: Ht 157.5 cm; Wt 61.2 kg
[2019-07-25] MEDS ORDERED: ALBUTEROL FS 2.5 MG/3 ML VIAL.NEB NEB ONE ×2 (16:30→17:00)
[2019-07-25] MEDS ORDERED: IPRATROPIUM NEB FS 0.5 MG/2.5 ML AMPUL.NEB NEB ONE ×2 (16:30→17:00)
--- NOTE | 2019-07-25 16:30 | NUR ---
bib self 68 year old female c/o sob x 3-4 days 98% on RA. breathing even and unlabored with non productive cough noted. patient stated she had 1 alcohol beverage. alert and oriented x3. c/o of pain skin intact and warm to touch. waiting to be seen by md.
[2019-07-25 16:41] LABS: BASOPHILS # (AUTO) 0.1 /CMM (0.0-0.2); BASOPHILS % (AUTO) 1.2 % (0.0-2.0); EOSINOPHILS % (AUTO) 4.9 % (0.0-6.0); HEMATOCRIT 38 % (33-45); HEMOGLOBIN 12.6 g/dL (11.5-14.8); LYMPHOCYTES # (AUTO) 2.7 /CMM (0.8-4.8); LYMPHOCYTES % (AUTO) 37.7 % (20.0-44.0); MEAN CORPUSCULAR HGB CONC 34 g/dl (31.0-36.0); MEAN CORPUSCULAR VOLUME 95 fL (82-100); MONOCYTES # (AUTO) 0.7 /CMM (0.1-1.30); MONOCYTES % (AUTO) 10.2 % (2.0-12.0); NEUTROPHILS # (AUTO) 3.3 /CMM (1.8-8.9); PLATELET COUNT (AUTO) 359 /CMM (150-450); RED BLOOD CELL COUNT(AUTO) 3.98 MIL/uL (4.0-5.2); WHITE BLOOD COUNT (AUTO) 7.3 K/uL (4.3-11.0)
[2019-07-25] MEDS ORDERED: HYDROCODONE/APAP 5/325MG 1 EACH TABLET ONE (16:41)
[2019-07-25] MEDS ORDERED: ALBUTEROL FS 2.5 MG/3 ML VIAL.NEB ONE ×2 (16:41→16:58)
[2019-07-25] MEDS ORDERED: IPRATROPIUM NEB FS 0.5 MG/2.5 ML AMPUL.NEB ONE ×2 (16:41→16:58)
[2019-07-25] MEDS ORDERED: predniSONE 20 MG TABLET ONE (16:42)
[2019-07-25 16:49] LABS: CALCIUM, SERUM 9.2 mg/dL (8.5-10.1); CARBON DIOXIDE 23 mmol/L (21-32); CHLORIDE 98 mmol/L (98-107); CREATININE 0.6 mg/dL (0.6-1.3); GLUCOSE 79 mg/dL (74-106); POTASSIUM 3.5 mmol/L (3.5-5.1); SODIUM SERUM 133 mmol/L (136-145); UREA NITROGEN, BLOOD 4 mg/dL (7-18)
[2019-07-25 16:54] LABS: ALANINE AMINOTRANSFERASE 18 U/L (12-78); ALBUMIN 3.5 g/dL (3.4-5.0); ALKALINE PHOSPHATASE 55 U/L (46-116); ASPARTATE AMINOTRANSFERASE 18 U/L (15-37); BILIRUBIN,TOTAL 0.2 mg/dL (0.2-1.0)
[2019-07-25] MEDS ORDERED: ONDANSETRON HCL/PF 4 MG/2 ML VIAL ONE ×2 (16:59→18:20)
[2019-07-25] MEDS ORDERED: predniSONE 20 MG TABLET PO ONE (17:00)
[2019-07-25] MEDS ORDERED: HYDROCODONE/APAP 5/325MG 1 EACH TABLET PO ONE (17:00)
--- NOTE | 2019-07-25 17:00 | NUR ---
PT. VOMITING DURING THE BREATHING TX'S AND MD ASKED TO GIVE ANOTHER SET OF ALBUTEROL 2.5MG/ ATROVENT 0.5 MG HHN X1 PT. AWAKE AND ALERT B/S BILATERALLY WHEEZING, STABLE AND VITAL SIGNS ARE WITH IN NORMAL LIMITS. CONTINUE TO MONITOR. AMBU BAG REMAIN AT THE BEDSIDE.
--- NOTE | 2019-07-25 17:02 | NUR ---
pt vomitted x1 md made aware
[2019-07-25] MEDS ORDERED: ONDANSETRON HCL/PF - ER 4 MG/2 ML VIAL IV ONE (18:30)
[2019-07-25 18:35] VITALS: BP 133/77
--- NOTE | 2019-07-25 18:36 | NUR ---
dcPatient discharged to home in stable condition. Written and verbal after care instructions given. Patient verbalizes understanding of instruction. IV removed. Catheter intact and site benign. Pressure and 4x4 applied to site. No bleeding noted.
== END 2019-07-25 18:37 | disposition home or self-care (01) ==
LOC: ER 16:25
DX: J44.9 Chronic obstructive pulmonary disease, unspecified (principal); I10 Essential (primary) hypertension; M54.9 Dorsalgia, unspecified; G89.29 Other chronic pain; F10.10 Alcohol abuse, uncomplicated; F17.200 Nicotine dependence, unspecified, uncomplicated; Y90.9 Presence of alcohol in blood, level not specified; Z79.899 Other long term (current) drug therapy; Z98.890 Other specified postprocedural states; Z60.2 Problems related to living alone
CPT/HCPCS: 36415; 71045; 80048; 80076; 84484; 85025; 87804 ×2; 93005; 94640 ×2; 96374; 99284; J2405 ×2; J7512

== ENCOUNTER 2019-09-29 11:22 | Outpatient (CLI) | payer MEDICARE, OTHER | END 2019-09-29 23:59 | disposition home or self-care (01) | LOC: MSC 11:22 | PROVIDERS: ATTEND Internal Medicine | DX: J44.1 Chronic obstructive pulmonary disease with (acute) exacerbation (principal); Z72.0 Tobacco use; M17.10 Unilateral primary osteoarthritis, unspecified knee; M47.896 Other spondylosis, lumbar region; L30.8 Other specified dermatitis; D71 Functional disorders of polymorphonuclear neutrophils; I10 Essential (primary) hypertension; E11.9 Type 2 diabetes mellitus without complications; Z79.52 Long term (current) use of systemic steroids; Z79.899 Other long term (current) drug therapy ==

== ENCOUNTER 2019-11-03 11:17 | Emergency (ER) | payer MEDICARE, OTHER ==
[~2019-11-03] VITALS: Ht 162.6 cm; Wt 60.8 kg
--- NOTE | 2019-11-03 11:42 | NUR ---
COUGH, CONGESTION, BODY ACHES X 3 DAYS, PT AWAKE, ALERT, PT TO BED 6, -SOB, -CP, PENDING MD GOMES
[2019-11-03 12:26] LABS: BASOPHILS # (AUTO) 0.1 /CMM (0.0-0.2); BASOPHILS % (AUTO) 0.9 % (0.0-2.0); EOSINOPHILS % (AUTO) 2.9 % (0.0-6.0); HEMATOCRIT 34 % (33-45); HEMOGLOBIN 11.5 g/dL (11.5-14.8); LYMPHOCYTES # (AUTO) 2.2 /CMM (0.8-4.8); MEAN CORPUSCULAR HGB CONC 34 g/dl (31.0-36.0); MEAN CORPUSCULAR VOLUME 98 fL (82-100); MONOCYTES # (AUTO) 0.5 /CMM (0.1-1.30); NEUTROPHILS # (AUTO) 2.8 /CMM (1.8-8.9); NEUTROPHILS % (AUTO) 49.2 % (43.0-81.0); PLATELET COUNT (AUTO) 208 /CMM (150-450); RED BLOOD CELL COUNT(AUTO) 3.48 MIL/uL (4.0-5.2); WHITE BLOOD COUNT (AUTO) 5.8 K/uL (4.3-11.0)
[2019-11-03 12:34] LABS: ALANINE AMINOTRANSFERASE 22 U/L (12-78); ALBUMIN 3.2 g/dL (3.4-5.0); ALKALINE PHOSPHATASE 54 U/L (46-116); ASPARTATE AMINOTRANSFERASE 34 U/L (15-37); BILIRUBIN,TOTAL 0.3 mg/dL (0.2-1.0); CALCIUM, SERUM 7.7 mg/dL (8.5-10.1); CREATININE 0.4 mg/dL (0.6-1.3); GLUCOSE 76 mg/dL (74-106); UREA NITROGEN, BLOOD 3 mg/dL (7-18)
[2019-11-03 12:35] LABS: CARBON DIOXIDE 18 mmol/L (21-32); CHLORIDE 97 mmol/L (98-107); POTASSIUM 3.7 mmol/L (3.5-5.1); SODIUM SERUM 129 mmol/L (136-145)
--- NOTE | 2019-11-03 12:58 | NUR ---
CALLED [facility], PAGED KELLIE
--- NOTE | 2019-11-03 13:10 | NUR ---
COVID SWAB SENT TO LAB; GIVEN TO SHOP SERVICE TECHNICIAN TO BE TRANSPORTED MAIN LAB PER PROTOCOL.
[2019-11-03] MEDS ORDERED: CEFTRIAXONE 1GM BAG (ER ONLY) 50 ML IV ONE ×2 (13:16→13:30)
[2019-11-03] MEDS ORDERED: AZITHROMYCIN 500 MG in IV D5W 250 ML IV ONE (13:30)
--- NOTE | 2019-11-03 13:40 | NUR ---
URINE COLLECTED AND SENT TO LAB
[2019-11-03 13:45] LABS: APPEARANCE,URINE Clear (CLEAR); BILIRUBIN,URINE Negative (NEGATIVE); BLOOD, URINE Negative Ery/uL (NEGATIVE); COLOR,URINE Yellow (YELLOW); KETONES,URINE Negative (NEGATIVE); LEUKOCYTE ESTERASE ,URINE Negative (NEGATIVE); NITRITE, URINE Negative (NEGATIVE); PH,URINE 5.5 (5.0-8.0); PROTEIN,URINE Negative (NEGATIVE); UGLUCOSE Negative (NEGATIVE); UROBILINOGEN,URINE 0.2 EU/dL (0.2)
[2019-11-03] MEDS ORDERED: LORA-259 PO (14:04)
[2019-11-03] MEDS ORDERED: IBUP-1490 PO (14:04)
[2019-11-03] MEDS ORDERED: CARV12.52 PO (14:04)
[2019-11-03] MEDS ORDERED: AMLO5TAB9 PO (14:04)
[2019-11-03] MEDS ORDERED: ALBU18HF2 INH (14:04)
--- NOTE | 2019-11-03 16:03 | NUR ---
Patient does not wish to proceed with medical care recommended by Dr. Castillo. Patient given information related to possible complications, up to and including , which could occur as a result of leaving the hospital at this time. Patient verbalizes understanding of risks involved due to leaving against medical advice. Patient has signed AMA form.
[2019-11-03 16:33] VITALS: BP 125/75
== END 2019-11-03 16:03 | disposition left against medical advice (07) ==
LOC: ER 11:18 → UNDOADMIN 15:34 → TELE1 15:34 → ER 16:03
DX: J44.1 Chronic obstructive pulmonary disease with (acute) exacerbation (principal); R68.89 Other general symptoms and signs; I10 Essential (primary) hypertension; G89.29 Other chronic pain; Z98.890 Other specified postprocedural states; Z60.2 Problems related to living alone; Z79.899 Other long term (current) drug therapy
CPT/HCPCS: 36415; 71045; 80048; 80076; 81001; 83605 ×2; 84145; 84484; 85025; 85730; 87040 ×2; 87086; 87635; 87804 ×2; 93005; 96365; 96368; 99285; J0456; J0696; J7060; 81000-TC; U0002

== ENCOUNTER 2019-11-29 11:58 | Emergency (ER) | payer MEDICARE, OTHER ==
[~2019-11-29] VITALS: Ht 160 cm; Wt 55.3 kg
[~2019-11-29 11:58] MED LIST changes: +ALBU18HF2 INH; -ALBU2.5V13 NEB; +AMLO5TAB9 PO; -AZIT250T PO; +CARV12.52 PO; -CEFT1FRO2 IV; +IBUP-1490 PO; +LORA-259 PO; -PRED20TA GT; -PRED20TA PO; -VALS80TA2 PO
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
--- NOTE | 2019-11-29 12:10 | NUR ---
DR DUARTE AT BEDSIDE FOR EVAL.
[2019-11-29] MEDS ORDERED: HYDROCODONE/APAP 5/325MG 1 EACH TABLET ONE (12:17)
[2019-11-29] MEDS ORDERED: HYDROCODONE/APAP 5/325MG 1 EACH TABLET PO ONE (12:30)
--- NOTE | 2019-11-29 12:40 | NUR ---
AMPHIBIOUS OPERATIONS OFFICER AT BEDSIDE
--- NOTE | 2019-11-29 13:38 | NUR ---
QUALITY ASSURANCE TESTER AT BEDSIDE
--- NOTE | 2019-11-29 13:56 | NUR ---
Patient discharged to home in stable condition. Written and verbal after care instructions given. Patient verbalizes understanding of instruction.
[2019-11-29 13:59] VITALS: BP 127/74
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
== END 2019-11-29 14:00 | disposition home or self-care (01) ==
LOC: ER 12:04
DX: S43.102A Unspecified dislocation of left acromioclavicular joint, initial encounter (principal); I10 Essential (primary) hypertension; J44.9 Chronic obstructive pulmonary disease, unspecified; G89.29 Other chronic pain; F17.200 Nicotine dependence, unspecified, uncomplicated; Z98.890 Other specified postprocedural states; Z60.2 Problems related to living alone; Z79.899 Other long term (current) drug therapy; Y04.0XXA Assault by unarmed brawl or fight, initial encounter; Y93.89 Activity, other specified; Y92.89 Other specified places as the place of occurrence of the external cause; Y99.8 Other external cause status
CPT/HCPCS: 73030-TC

== ENCOUNTER 2019-12-08 12:06 | Emergency (ER) | payer MEDICARE, OTHER ==
[~2019-12-08] VITALS: Ht 160 cm; Wt 49.9 kg
[2019-12-08 12:08] VITALS: BP 110/68
--- NOTE | 2019-12-08 12:53 | NUR ---
Patient given written and verbal discharge instructions. Patient verbalizes understanding of instructions. Patient is ambulatory with steady gait. Refuses offer of skilled nursing placement. Patient given list of available shelters in surrounding area.
== END 2019-12-08 12:54 | disposition home or self-care (01) ==
LOC: ER 12:11
DX: M25.512 Pain in left shoulder (principal); I10 Essential (primary) hypertension; J44.9 Chronic obstructive pulmonary disease, unspecified; G89.29 Other chronic pain; M54.9 Dorsalgia, unspecified; Z59.0 Homelessness; Z98.890 Other specified postprocedural states; Z60.2 Problems related to living alone; Z79.899 Other long term (current) drug therapy

== ENCOUNTER 2019-12-13 13:32 | Emergency (ER) | payer MEDICARE, OTHER ==
[~2019-12-13] VITALS: Ht 152.4 cm; Wt 52.2 kg
[2019-12-13 13:38] VITALS: BP 123/66
[2019-12-13] MEDS ORDERED: KETOROLAC TROMETHAMINE INJ 30 MG/ML VIAL ONE (13:53)
[2019-12-13] MEDS ORDERED: DEXAMETHASONE SOD PHOSPHATE 10 MG/ML VIAL ONE (13:53)
--- NOTE | 2019-12-13 13:59 | NUR ---
Patient discharged to home in stable condition. Written and verbal after care instructions given. Patient verbalizes understanding of instruction.
[2019-12-13] MEDS ORDERED: KETOROLAC TROMETHAMINE INJ 30 MG/ML VIAL IM ONE (14:00)
[2019-12-13] MEDS ORDERED: DEXAMETHASONE SOD PHOSPHATE 4 MG/ML VIAL IM ONE (14:00)
== END 2019-12-13 13:59 | disposition home or self-care (01) ==
LOC: ER 13:34
DX: G89.29 Other chronic pain (principal); M54.5 Low back pain; M54.16 Radiculopathy, lumbar region; I10 Essential (primary) hypertension; Z59.0 Homelessness; J44.9 Chronic obstructive pulmonary disease, unspecified; Z98.890 Other specified postprocedural states; Z79.899 Other long term (current) drug therapy
CPT/HCPCS: 96372 ×2; 99284; J1100; J1885